=== PATIENT | male | born 1995 | race Caucasian/White ===

== ENCOUNTER 2021-10-26 23:30 | Emergency (ER) | payer SELFPAY ==
[~2021-10-26] VITALS: Ht 175.3 cm; Wt 90.0 kg
[2021-10-27 01:22] LABS: BASOPHILS % 0.3 % (0.0-2.0); EOSINOPHILS % 0.2 % (0.0-5.0); HEMATOCRIT. 44.2 % (42.0-52.0); HEMOGLOBIN. 14.8 g/dL (14.0-18.0); MEAN CORPUSCULAR HEMOGLOBIN 29.8 pg (28.0-32.0); MEAN CORPUSCULAR VOLUME 89.3 fL (80.0-94.0); MEAN PLATELET VOLUME 8.1 fl (7.4-10.4); MONOCYTES % 8.4 % (2.0-8.0); NEUTROPHILS % 70.1 % (40.0-76.0); PLATELET 264 x1000/uL (130-400); RED BLOOD CELL COUNT 4.95 mill/uL (4.7-6.1); RED CELL DISTRIBUTION WIDTH 13.2 % (11.6-14.6)
[2021-10-27 01:29] LABS: CHLORIDE 104 mEq/L (98-107)
[2021-10-27 04:22] VITALS: BP 155/79
== END 2021-10-27 05:04 | disposition home or self-care (01) ==
LOC: ER 23:30
DX: R07.89 Other chest pain (principal)
CPT/HCPCS: 36415; 80053; 83880; 84484; 85025; 93005; 99284